=== PATIENT | female | born 1980 | race Asian ===

== ENCOUNTER 2019-05-17 12:10 | Inpatient (IN) | payer OTHER ==
[~2019-05-17 12:10] MED LIST: CITRIC ACID/SODIUM CITRATE 30 ML UNIT-DOSE CUP PO ONE; ELECTROLYTE-148 SOLN 1,000 ML IV SCH
[2019-05-17] MEDS ORDERED: ELECTROLYTE-148 SOLN 1,000 ML IV SCH (12:40)
[2019-05-17 13:34] VITALS: BMI 26.3
[2019-05-17] MEDS ORDERED: OXYTOCIN 20 UNITS in 0.9% NS 20 UNIT/1,000 ML INFUS.BAG IV ONE ×2 (14:22→16:44)
[2019-05-17] MEDS ORDERED: morphine SULFATE/PF 0.5 MG/ML (2cc Syringe - QUVA) ONE (14:23)
[2019-05-17] MEDS ORDERED: ePHEDrine SULFATE 50 MG/1 ML AMPULE ONE (14:23)
[2019-05-17] MEDS ORDERED: oxyCODONE HCL 5 MG TABLET PO PRN ×2 (14:51)
[2019-05-17] MEDS ORDERED: METHYLERGONOVINE MALEATE 0.2 MG/1 ML AMP IM PRN (14:51)
--- NOTE | 2019-05-17 15:01 | HP ---
Past Medical History - Primary Care Physician PCP:: Jeanne Jackson - Admission Chief Complaint: here for repeat c section History of Present Illness: 39 y/o P1 female with h/o prior section here for repeat delivery. complicated by AMA and A1GDM. Otherwise uncomplicated. Followed with MFM. Desired TOLAC if delivered by due date. No LOF/CTx/VB. + FM. History Source: Patient, Medical Record Limitations to Obtaining History: No Limitations - Past Medical History Cardiovascular: No: SD Pulmonary: No: Asthma, COPD Gastrointestinal: No: GERD Hepatobiliary: No: Hepatitis B, Hepatitis C Renal/: No: UTI Reproductive: No: PID ...: 3 ...Para: 1 ...Term: 1 ...: 0 ...Spon : 1 ...Induced : 0 ...Multiple Gestation: 0 ...EDC by Sono: 05/15/19 Infectious Disease: No: HIV, MRSA, STD's - Past Surgical History Past Surgical History: Yes: None Hx Myomectomy: No Hx Transabdominal Cerclage: No - Smoking History Smoking history: Never smoked Have you smoked in the past 12 months: No - Alcohol/Substance Use Hx Alcohol Use: No History of Substance Use: reports: None - Social History History of Recent Travel: No Home Medications - Allergies Allergies/Adverse Reactions: Allergies Allergy/AdvReac Type Severity Reaction Status Date / Time No Known Allergies Allergy Verified 05/17/19 12:40 - Home Medications Home Medications: Ambulatory Orders Vits96/Iron Fum/Folic [ Tablet] 1 each PO DAILY 05/17/19 Physical Exam - Maternity Vital Signs: Vital Signs Temperature 97.9 F 05/17/19 13:20 Pulse Rate 72 05/17/19 13:20 Respiratory Rate 20 05/17/19 13:20 Blood Pressure 112/71 05/17/19 13:20 O2 Sat by Pulse Oximetry (%) Constitutional: Yes: Well Nourished, No Distress, Calm Eyes: Yes: EOM Intact HENT: Yes: Normocephalic Neck: Yes: Supple Cardiovascular: Yes: Regular Rate and Rhythm Lungs: Clear to auscultation - Abdominal Exam/OB Number of Fetuses: Single Presentation: Vertex Contractions: Yes Regularity: Irregular Intensity: Unaware Category: I Decelerations: None - Vaginal Exam/OB Amniotic Membrane Status: Intact Presentation: Vertex/Position - Physical Exam Psychiatric: Yes: Alert, Oriented Hemorrhage Risk Assessment - Risk Factors Medium Risk Factors: Yes: None High Risk Factors: Yes: None Risk Score: 1 Risk Level: Medium Risk Problem List - Problems (1) History of delivery Code(s): Z98.891 - HISTORY OF UTERINE SCAR FROM PREVIOUS SURGERY (2) Gestational diabetes Code(s): O24.419 - GESTATIONAL DIABETES MELLITUS IN , UNSP CONTROL Assessment/Plan 39 y/o P1 with SIUP at 40.2 weeks here for scheduled repeat c section, also with A1GDM NPO Baires Informed consent obtained regarding surgery anesthesia aware
[2019-05-17] MEDS ORDERED: PHENYLEPHRINE HCL 10 MG/1 ML SINGLE DOSE VIAL ONE (15:05)
[2019-05-17] MEDS ORDERED: ceFAZolin SODIUM 1 GM VIAL ONE (15:07)
[2019-05-17] MEDS: OXYTOCIN 20 UNITS in 0.9% NS 20 UNIT/1,000 ML INFUS.BAG IV SCH (15:10)
--- NOTE | 2019-05-17 15:38 | OP ---
Operative Note - Note: Operative Date: 05/17/19 Pre-Operative Diagnosis: previous c section, declined TOLAC, A1GDM Operation: repeat LTCS Findings: normal b/l tubes and ovaries live female infant Post-Operative Diagnosis: Same as Pre-op Surgeon: Jeanne Jackson Form Setter [employer] Forms: Kalia Barnard Anesthesiologist/TAX REVENUE OFFICER: Jeannette Cobb Anesthesia: Spinal Specimens Removed: placenta Estimated Blood Loss (mls): 700 Operative Report Dictated: Yes
[2019-05-17] MEDS ORDERED: ONDANSETRON 4 MG/2 ML VIAL IVPUSH PRN (15:53)
[2019-05-17] MEDS ORDERED: IBUPROFEN 800 MG/8 ML IJ IVPB ONE (16:54)
[2019-05-17] MEDS: IBUPROFEN 800 MG/8 ML IJ IVPB PRN (17:00)
[2019-05-18] MEDS: IBUPROFEN 800 MG/8 ML IJ IVPB PRN (01:05)
[2019-05-18] MEDS: OXYTOCIN 20 UNITS in 0.9% NS 20 UNIT/1,000 ML INFUS.BAG IV SCH (02:52)
--- NOTE | 2019-05-18 08:27 | PN ---
Progress Note (short form) - Note Progress Note: 39 F P2, s/p repeat C/S after declined TOLAC, c/b A1GDM. C/S with duramorph spinal. No complaints this morning. Neuromotor function within normal limits. VS: 98F, 74, 18, 86/53, 99% RA A&O x 3, sitting in bed, baby at bedside RRR, CTA b/l CASTILLO Spinal anesthesia w/o complications Routine follow-up Please call with questions.
[2019-05-18 08:39] LABS: BASO % 0.4 % (0-2.0); EOS % 0.7 % (0-4.5); HEMATOCRIT 26.4 % (32.4-45.2); HEMOGLOBIN 9.3 GM/dL (10.7-15.3); LYMPH % 17.2 % (8-40); MCH 32.9 pg (25.7-33.7); MCHC 35.3 g/dl (32.0-36.0); MEAN CELL VOLUME 93.1 fl (80-96); MONO % 6.3 % (3.8-10.2); NEUT % 75.4 % (42.8-82.8); PLATELET COUNT 155 K/MM3 (134-434); RBC 2.83 M/mm3 (3.60-5.2); WHITE BLOOD COUNT 8.2 K/mm3 (4.0-10.0)
--- NOTE | 2019-05-18 08:43 | PN ---
Progress Note (SOAP) - Subjective Chief Complaint: Pt doing well no complaints - Current Medications Current Medications: Active Medications Acetaminophen (Tylenol -) 650 mg PO Q4H PRN PRN Reason: FEVER Bisacodyl (Dulcolax Suppository -) 10 mg RC PRN PRN PRN Reason: CONSTIPATION Diphenhydramine HCl (Benadryl Injection -) 25 mg IVPUSH Q4H PRN PRN Reason: Pruritis Last Admin: 05/17/19 21:36 Dose: 25 mg Oxytocin/Sodium Chloride (Normal Saline+20 Units Oxytocin -) 20 unit in 1,000 mls @ 125 mls/hr IV ASDIR EMMY Last Admin: 05/18/19 02:52 Dose: 125 mls/hr Ibuprofen (Motrin -) 600 mg PO Q4H PRN PRN Reason: PAIN LEVEL 1 - 3 Ibuprofen (Caldolor Injection -) 800 mg IVPB Q8H PRN PRN Reason: PAIN LEVEL 6-10 Last Admin: 05/18/19 01:05 Dose: 800 mg Methylergonovine Maleate (Methergine Injection -) 0.2 mg IM Q4H PRN PRN Reason: Excessive Bleeding (L&D) Ondansetron HCl (Zofran Injection) 4 mg IVPUSH Q4H PRN PRN Reason: NAUSEA Oxycodone HCl (Roxicodone -) 5 mg PO Q4H PRN PRN Reason: PAIN LEVEL 4 - 6 Oxycodone HCl (Roxicodone -) 10 mg PO Q4H PRN PRN Reason: PAIN LEVEL 7 - 10 Simethicone (Mylicon -) 80 mg PO Q4H PRN PRN Reason: GAS - Objective Vital Signs: Vital Signs Temperature 98.0 F 05/18/19 06:00 Pulse Rate 74 05/18/19 06:00 Respiratory Rate 18 05/18/19 06:00 Blood Pressure 86/53 L 05/18/19 06:00 O2 Sat by Pulse Oximetry (%) 100 05/17/19 16:30 Constitutional: Yes: Well Nourished Gastrointestinal: Yes: WNL, Soft ....Post : Yes: Uterus firm, Uterus non-tender Breast(s): Yes: WNL Musculoskeletal: Yes: WNL Extremities: Yes: WNL Edema: No Wound/Incision: Yes: Clean/Dry, Well Approximated, Steri Strips, Open to air Psychiatric: Yes: WNL, Alert, Oriented Problem List - Problems (1) History of delivery Code(s): Z98.891 - HISTORY OF UTERINE SCAR FROM PREVIOUS SURGERY (2) Status post repeat low transverse section Code(s): Z98.891 - HISTORY OF UTERINE SCAR FROM PREVIOUS SURGERY Assessment/Plan POD1 Stable doing well Plan Cntinue present management
--- NOTE | 2019-05-18 10:52 | OP ---
DATE OF OPERATION: 05/17/2019 PREOPERATIVE DIAGNOSES: Single intrauterine at 40 weeks, A1 gestational diabetes, prior section. POSTOPERATIVE DIAGNOSES: Single intrauterine at 40 weeks, A1 gestational diabetes, prior section. PROCEDURE: Repeat low transverse section. SURGEON: Jeanne Jackson DO LAY MIDWIFE: JOSSELYN Steinberg ANESTHESIA: Spinal by Jeannette Cobb DO SPECIMENS REMOVED: Included placenta. ESTIMATED BLOOD LOSS: 700 mL. COMPLICATIONS: None. Sponge, needle, instrument count correct at the end of the case. FINDINGS: Normal bilateral tubes and ovaries and live female . BRIEF HISTORY AND PROCEDURE: Patient is a 39-year-old female with a history of 1 prior section who was seen in the office and elected to undergo a repeat section if not delivered by the May. The patient was admitted to [facility] on May 17, 2019. Consents for the procedure were signed. She was then taken back to the operating room and given spinal anesthesia by Dr. Jeannette Cobb. She was then placed in a dorsal supine position, and Baires catheter was placed under sterile conditions. She was prepped and draped in the usual sterile fashion, and a hard time-out was performed. A Pfannenstiel skin incision was created in the skin with a scalpel at the same site as her prior incision, and this incision was carried to the rectus fascia sharply. The fascia was incised on either side of the midline sharply, and the fascial incision was carried in superolateral direction sharply. The fascia was tented upward and dissected off the underlying layer of rectus muscle sharply. The musculature was identified, laterally, and the peritoneum was entered bluntly, and a bladder blade was inserted. The peritoneum was dissected to allow for adequate room for delivery. A lower uterine segment was noted to be very thin, and a low transverse incision was created approximately 2-3 cm above this thin portion of the uterus , and this hysterotomy was extended in a superolateral direction bluntly. The infant then delivered from the left occiput transverse position without difficulty. A loose nuchal cord was noted after delivery of the head. The bilateral shoulders and the remainder of the infant delivered with ease. The cord was clamped twice and cut in between after delayed cord clamping. The infant was taken over to the warmer where Apgars of 9 and 9 were assigned by the nursery staff. The placenta was then delivered intact with a 3-vessel cord. The uterus was then exteriorized from the abdomen, inspected of all amniotic membrane and debris with a dry lap sponge. Hysterotomy was reapproximated using 1 Vicryl in a running locked fashion and a 2nd layer using 0 Biosyn in a running locked fashion. Excellent hemostasis was achieved. Bilateral tubes and ovaries were inspected and noted to be normal. The posterior cul-de-sac was suctioned of amniotic fluid and blood. The uterus was placed back into the abdomen. The hysterotomy was, again, noted to be hemostatic. The peritoneum was reapproximated using 2-0 chromic in a running fashion. The musculature was reapproximated in a single interrupted suture using 0 Biosyn. The fascia was reapproximated using 1 Vicryl in a running fashion. The subcutaneous tissue was irrigated and reapproximated using 1 Vicryl interrupted suture. The skin was reapproximated in a subcuticular fashion using 3-0 Vicryl, and Steri-Strips were applied. The patient tolerated the procedure well and is recovering in stable condition in the PACU after the procedure. Sponge, needle and instrument counts were reported correct at the end of the case. JEANNE JACKSON DO /[id number] MTDD
[2019-05-18] MEDS: IBUPROFEN 600 MG TABLET (FP) PO PRN ×2 (11:49→20:01)
[2019-05-18] MEDS: ACETAMINOPHEN 325 MG TABLET (FP) PO PRN ×2 (11:51→20:01)
[2019-05-18] MEDS: SIMETHICONE 80 MG TAB.CHEW (FP) PO PRN ×2 (11:52→20:01)
[2019-05-18] MEDS ORDERED: BISACODYL 10 MG SUPP.RECT RC PRN (14:51)
[2019-05-19] MEDS: SIMETHICONE 80 MG TAB.CHEW (FP) PO PRN ×4 (00:52→21:16)
[2019-05-19] MEDS: IBUPROFEN 600 MG TABLET (FP) PO PRN ×4 (00:52→21:16)
[2019-05-19] MEDS: ACETAMINOPHEN 325 MG TABLET (FP) PO PRN ×4 (00:52→21:17)
--- NOTE | 2019-05-19 06:33 | PN ---
Progress Note (SOAP) - Subjective Chief Complaint: Pt doing well no complaints - Current Medications Current Medications: Active Medications Acetaminophen (Tylenol -) 650 mg PO Q4H PRN PRN Reason: FEVER Last Admin: 05/19/19 00:52 Dose: 650 mg Bisacodyl (Dulcolax Suppository -) 10 mg RC PRN PRN PRN Reason: CONSTIPATION Diphenhydramine HCl (Benadryl Injection -) 25 mg IVPUSH Q4H PRN PRN Reason: Pruritis Last Admin: 05/17/19 21:36 Dose: 25 mg Oxytocin/Sodium Chloride (Normal Saline+20 Units Oxytocin -) 20 unit in 1,000 mls @ 125 mls/hr IV ASDIR EMMY Last Admin: 05/18/19 02:52 Dose: 125 mls/hr Ibuprofen (Motrin -) 600 mg PO Q4H PRN PRN Reason: PAIN LEVEL 1 - 3 Last Admin: 05/19/19 00:52 Dose: 600 mg Ibuprofen (Caldolor Injection -) 800 mg IVPB Q8H PRN PRN Reason: PAIN LEVEL 6-10 Last Admin: 05/18/19 01:05 Dose: 800 mg Methylergonovine Maleate (Methergine Injection -) 0.2 mg IM Q4H PRN PRN Reason: Excessive Bleeding (L&D) Ondansetron HCl (Zofran Injection) 4 mg IVPUSH Q4H PRN PRN Reason: NAUSEA Oxycodone HCl (Roxicodone -) 5 mg PO Q4H PRN PRN Reason: PAIN LEVEL 4 - 6 Oxycodone HCl (Roxicodone -) 10 mg PO Q4H PRN PRN Reason: PAIN LEVEL 7 - 10 Simethicone (Mylicon -) 80 mg PO Q4H PRN PRN Reason: GAS Last Admin: 05/19/19 00:52 Dose: 80 mg - Objective Vital Signs: Vital Signs Temperature 98.1 F 05/18/19 22:00 Pulse Rate 74 05/18/19 22:00 Respiratory Rate 18 05/18/19 22:00 Blood Pressure 108/54 L 05/18/19 22:00 O2 Sat by Pulse Oximetry (%) 100 05/17/19 16:30 Constitutional: Yes: Well Nourished, No Distress Gastrointestinal: Yes: WNL, Soft ....Post : Yes: Uterus firm, Uterus non-tender Breast(s): Yes: WNL Musculoskeletal: Yes: WNL Extremities: Yes: WNL Labs Lab Results: CBC, BMP 05/18/19 07:20 Problem List - Problems (1) History of delivery Code(s): Z98.891 - HISTORY OF UTERINE SCAR FROM PREVIOUS SURGERY (2) Status post repeat low transverse section Code(s): Z98.891 - HISTORY OF UTERINE SCAR FROM PREVIOUS SURGERY Assessment/Plan POD2 Stable doing well Plan Cntinue present management
--- NOTE | 2019-05-19 16:41 | PATH ---
Surgical Pathology Report Patient Name: DANIELLE STARKS Med. Rec. #: [id number] /Age/Gender: 1980 (Age: 39) / F Account: [id number] Location: [facility] OBS/GENERAL LABORER Taken: 05/17/2019 Received: 05/18/2019 Reported: 05/19/2019 Physicians: Jeanne Jackson M.D. Specimen(s) Received PLACENTA Clinical History , 40.2 weeks, diabetes diet control Final Diagnosis PLACENTA: THIRD TRIMESTER PLACENTA. TRIVASCULAR CORD. MEMBRANES WITH NO DIAGNOSTIC ABNORMALITIES. Electronically Signed Santhosh Caceres M.D. Gross Description The specimen is received fresh labeled placenta and is a 460 gram, 19 x15 x 2.2cm. placenta with attached membranes and umbilical cord. The attached membranes are glistening, translucent, and insert marginally. The umbilical cord measures 56 cm. in length and averages 1.0 cm. in diameter. The cord inserts centrally, 4centimeter to the nearest margin. No true knots or strictures are identified. Cut surface of the umbilical cord reveals 3 vessels. The maternal surface show focal disruption measuring 8 cm in greatest dimension. Sectioning reveals red-brown, spongy parenchyma. No lesions are identified. Montessori Preschool Teacher sections are submitted in three cassettes as follows: 1- membrane rolls and umbilical cord; 2-3- full thickness sections of placenta KWS/05/18/2019 sulki/05/18/2019
--- NOTE | 2019-05-20 02:42 | DS ---
Physical Exam-MEDICAL ADVISOR Vital Signs: Vital Signs Temperature 98.2 F 05/19/19 20:30 Pulse Rate 74 05/19/19 20:30 Respiratory Rate 20 05/19/19 20:30 Blood Pressure 123/71 05/19/19 20:30 O2 Sat by Pulse Oximetry (%) 100 05/17/19 16:30 Constitutional: Yes: Well Nourished, No Distress, Calm Eyes: Yes: EOM Intact HENT: Yes: Normocephalic Neck: Yes: Supple Cardiovascular: Yes: Regular Rate and Rhythm Respiratory: Yes: Regular Gastrointestinal: Yes: Normal Bowel Sounds, Soft ....Post : Yes: Uterus firm, Uterus non-tender Edema: No Wound/Incision: Yes: Clean/Dry, Well Approximated Neurological: Yes: Alert, Oriented Psychiatric: Yes: Alert, Oriented Labs: CBC, BMP 05/18/19 07:20 Delivery - Delivery Section: Repeat, Low Flap Transverse Type of Anesthesia: Epidural Episiotomy/Laceration: None EBL (cc): 700 Delivery, Single - Stages of Labor Date of Delivery: 05/17/19 Time of Delivery: 15:09 Time Placenta Delivered: 15:10 - Condition of Infant Germination Worker/Media Specialist Present: Yes Name: Cher Dozier Gender: Female Weight: 6 lb 11 oz Total Hours ROM (Hrs/Mins): 1 minute - 1 Minute Total Score: 9 5 Minutes Total Score: 9 - [place] Feeding Plan Initial Plan: Exclusive throughout hospitalization Discharge Summary Problems reviewed: Yes Reason For Visit: REPEAT Current Active Problems Gestational diabetes (Acute) History of delivery (Acute) Status post repeat low transverse section (Acute) Procedures: Principal: Repeat LTCS Hospital Course: PT admitted on 05/17/19 for scheduled repeat c section. Pt underwent uncomplicated procedure on that date (see operative report). She underwent an uncomplicated post recovery and was discharged home on post op day 3. Condition: Good - Instructions Diet, Activity, Other Instructions: Physical activity Resume your normal everyday activity as tolerated no heavy lifting or exercise until seen by your surgeon. You may walk unlimited shania of and climb stairs. You may resume driving the car when you feel safe and comfortable behind the wheel. No sexual activity as instructed. Wound care If you have a bandage, leave it on, and keep dry for 48-72 hours. After that time discard the outer bandage. If they are tapes on the skin under the out of bandage leave them in place. They will peel off in the next 7 to 10 days. Do Not Peel them off. You may shower the day after surgery. If there are tapes present on the skin, you may shower over them. Diet There are no dietary restrictions. Eat healthy, high-fiber foods. Drink 6 to 8 glasses of liquid each day. This will assist in keeping your bowels are regular. Pain management You may take Tylenol or acetaminophen or Ibuprofen (for example, Motrin, Advil etc.) from my pain prescription medication is ordered should be taken as prescribed for moderate to severe pain. Call MD for any of the following: Severe pain not relieved by medication Fever of 101 or higher Excessive bleeding or drainage on dressing Inability to urinate Disposition: HOME - Home Medications Comprehensive Discharge Medication List: Ambulatory Orders Vits96/Iron Fum/Folic [ Tablet] 1 each PO DAILY 05/17/19
[2019-05-20] MEDS: IBUPROFEN 600 MG TABLET (FP) PO PRN ×3 (03:09→12:20)
[2019-05-20] MEDS: SIMETHICONE 80 MG TAB.CHEW (FP) PO PRN ×2 (03:09→07:17)
[2019-05-20] MEDS: ACETAMINOPHEN 325 MG TABLET (FP) PO PRN ×3 (03:09→12:20)
[2019-05-20 07:47] LABS: BASO % 0.8 % (0-2.0); EOS % 1.3 % (0-4.5); HEMATOCRIT 26.4 % (32.4-45.2); HEMOGLOBIN 9.3 GM/dL (10.7-15.3); LYMPH % 26.8 % (8-40); MCH 32.7 pg (25.7-33.7); MCHC 35.3 g/dl (32.0-36.0); MEAN CELL VOLUME 92.7 fl (80-96); MEAN PLT VOLUME 6.8 fl (7.5-11.1); MONO % 5.3 % (3.8-10.2); NEUT % 65.8 % (42.8-82.8); PLATELET COUNT 217 K/MM3 (134-434); RBC 2.85 M/mm3 (3.60-5.2); RDW 12.7 % (11.6-15.6); WHITE BLOOD COUNT 6.9 K/mm3 (4.0-10.0)
[2019-05-20 10:50] VITALS: BP 115/71; PULSE 68; TEMP 97.8
== END 2019-05-20 13:35 | disposition home or self-care (01) | DRG 540 ==
LOC: JLDR 12:10 → J3W 17:45
PROVIDERS: ADMIT Obstetrics & Gynecology; ATTEND Obstetrics & Gynecology
PROC: 10D00Z1 Extraction of Products of Conception, Low, Open Approach (ICD-10-PCS; principal; 2019-05-17)
DX: O34.211 Maternal care for low transverse scar from previous cesarean delivery (principal); N85.8 Other specified noninflammatory disorders of uterus; O24.420 Gestational diabetes mellitus in childbirth, diet controlled; Z3A.40 40 weeks gestation of pregnancy; Z37.0 Single live birth
CPT/HCPCS: 36415; 82962; 85025; 88307-TC